=== PATIENT | female | born 1995 | race Hispanic/Latino ===

== ENCOUNTER 2019-01-03 18:42 | Emergency (ER) | payer OTHER ==
[2019-01-03] MEDS ORDERED: ACETAMINOPHEN EXTRA STRENGTH 500 MG TABLET ONE (18:54)
[2019-01-03 19:22] LABS: APPEARANCE,URINE Clear (CLEAR); BILIRUBIN,URINE Negative (NEGATIVE); COLOR,URINE Yellow (YELLOW); GLUCOSE, URINE (UA) Negative (NEGATIVE); KETONES,URINE Negative (NEGATIVE); LEUKOCYTE ESTERASE ,URINE Negative (NEGATIVE); NITRATE,URINE Negative (NEGATIVE); OCCULT BLOOD,URINE Negative (NEGATIVE); PH,URINE 8.5 (5.0-8.0); PROTEIN,URINE Negative (NEGATIVE)
[2019-01-03 19:25] LABS: HCG,QUAL RESULT NEGATIVE (NEGATIVE)
== END 2019-01-03 20:40 | disposition home or self-care (01) ==
LOC: EDH 18:42
DX: R51 Headache (principal)
CPT/HCPCS: 81003; 81025